=== PATIENT | male | born 1965 | race Caucasian/White ===

== ENCOUNTER 2019-03-14 06:13 | Day surgery (SDC) | payer OTHER ==
[~2019-03-14] VITALS: Ht 175.3 cm; Wt 91.5 kg
[2019-03-14 06:31] VITALS: BP 132/103; PULSE 67; TEMP 97.3
[2019-03-14] MEDS ORDERED: ASPIRIN E.C. 8181 MG PO (06:34)
[2019-03-14] MEDS ORDERED: ZANTAC 150MG T150 MG PO (06:57)
[2019-03-14 08:30] VITALS: BP 110/76; PULSE 76; TEMP 97.2
--- NOTE | 2019-03-14 08:30 | NUR ---
Pt returned to [facility] 5. A&O. Ambulated to recliner in bay with steady gait. present. VSS-see flowsheet. Denies complaints or needs. Give pepsi per request, denies wanting to eat at this time.
[2019-03-14 08:45] VITALS: BP 115/71; PULSE 75
--- NOTE | 2019-03-14 09:00 | NUR ---
Pt tolerated a pepsi. VS stable. Pt removed BP cuff and partially dressed, eager to be discharged. Dr Garcia in to visit post procedure. IV removed, pressure dressing applied. Discharge teaching completed, verbalized understanding. Take via wheelchair to patient entrance for discharge home in private vehicle with driving.
[2019-03-14 09:27] VITALS: BP 112/78; PULSE 76
== END 2019-03-14 09:00 | disposition home or self-care (01) ==
LOC: SDCO 06:13
DX: Z12.11 Encounter for screening for malignant neoplasm of colon (principal); D12.2 Benign neoplasm of ascending colon; D12.3 Benign neoplasm of transverse colon; I10 Essential (primary) hypertension; E78.00 Pure hypercholesterolemia, unspecified
CPT/HCPCS: J2250; J3010; J7030